=== PATIENT | female | born 1950 | race Caucasian/White ===

== ENCOUNTER → 2016-03-13 | Outpatient (CLI) | payer OTHER, MEDICARE ==
[~2016-03-13] MED LIST: ALBUAER INH; ALBUAER9 INH; AMLO-110 PO; AMLO2.5T PO; CALC500C70 PO; DFL100 PO; DIPH25CA65 PO; GEMF600T PO; HYDR-4852 PO; HYDR5SYP11 PO; IBUP-1050 PO; KFL500 PO; LACTCAP3 PEG; MELATAB2 PO; MONT1TAB3 PO; PRLSR20 PO; ROSU5TAB PO; SYMIN160 INH
--- NOTE | 2016-03-13 08:50 | DIAGNOSTIC IMAGING REPORT ---
MRI OF THE LUMBAR SPINE WITHOUT CONTRAST CLINICAL HISTORY: Left sciatica pain. COMPARISON STUDY: Lumbar spine radiograph February 15, 2016. TECHNIQUE: Utilizing a 1.5 Shilpa magnet and dedicated coil, multiplanar, multiecho imaging of the lumbar spine was performed without IV contrast. FINDINGS: For purposes of numbering on this exam, the L5-S1 disc space is assigned to axial image 2426. There is a suspected transitional vertebra at the lumbosacral junction which is designated as S1 on this examination. There is 3 mm retrolisthesis of L5 on S1. No intracanalicular mass or fluid collection is present. The conus terminates at the upper L2 level. A right renal cyst and diverticulum of the third portion of the duodenum are incidentally noted. L1-2: The central canal and neural foramen are patent. L2-3: The central canal and neural foramen are patent. L3-4: There is a left paracentral annular tear. There is minimal disc bulge. There is mild facet arthrosis. The central canal and neural foramen are patent. L4-5: There is mild facet arthrosis. There is mild disc bulge. The central canal and neural foramen are patent. L5-S1: There is grade I anterolisthesis with uncovering of the disc. There is moderate to severe facet arthrosis, greater on the left. There is mild disc bulge. The central canal is patent. There is mild narrowing of the bilateral neural foramen. IMPRESSION: 1. Mild multilevel degenerative disc disease. Mild disc bulge at L5-S1. No disc herniation. Patent central canal. 2. Severe facet arthritis at the L5-S1 level, greater on the left. 3. Mild bilateral neural foraminal stenosis at L5-S1 due to mild anterolisthesis, uncovering of the disc and facet arthrosis. 4. Transitional vertebra at the lumbosacral junction. Please see above numbering scheme of the lumbar spine. Electronically signed by: Bienvenido Ruiz M.D. 03/13/2016 8:49 AM
== END | disposition home or self-care (01) ==
LOC: C.MRI 08:00
PROVIDERS: ATTEND Family Medicine
DX: M54.32 Sciatica, left side (principal); M54.5 Low back pain

== ENCOUNTER → 2016-04-19 | Outpatient (CLI) | payer OTHER, MEDICARE ==
[~2016-04-19] MED LIST changes: -ALBUAER INH; -AMLO-110 PO
== END | disposition home or self-care (01) ==
LOC: C.RDSM 08:41
PROVIDERS: ATTEND Physical Medicine & Rehabilitation
DX: M54.5 Low back pain (principal)

== ENCOUNTER → 2016-05-04 | Day surgery (SDC) | payer OTHER, MEDICARE ==
[2016-04-25 07:38] VITALS: Ht 165.1 cm; Wt 71.8 kg
[~2016-05-04] VITALS: Ht 165.1 cm; Wt 71.8 kg
[~2016-05-04] MED LIST changes: +BUPIVACAINE 0.25% 2.5MG/ML PF 10 ML VIAL INFIL ONE; -DFL100 PO; -HYDR-4852 PO; -HYDR5SYP11 PO; +IOPAMIDOL INJ 61% 15 ML VIAL ONE; -KFL500 PO; -LACTCAP3 PEG; +LIDOCAINE HCL 1% MPF 5 ML VIAL ONE; +METHYLPREDNISOLONE ACETATE 80 MG/ML VIAL ONE; -MONT1TAB3 PO; -PRLSR20 PO; -SYMIN160 INH
--- NOTE | 2016-05-04 13:39 | History & Physical Bridge - [place] ---
H&P Re-Evaluation Bridge Note: I have examined the patient, reviewed the History & Physical and in the interval since the performance of the History & Physical I have noted the following changes of clinical significance: No changes noted
[2016-05-04 14:01] VITALS: TEMP 37.2
[2016-05-04 14:04] VITALS: BP 161/88; PULSE 87; O2SAT 95
--- NOTE | 2016-05-04 14:04 | Discharge Instructions ---
Discharge Instructions Visit Reason for Visit: Low Back Pain Discharge Discharge Diagnosis / Problem: low back pain Discharge Goals Goal(s): Decrease discomfort, Improve function Medications Stopped Medications Name(s): ADVIL- STOPPED Sunday04/30/16 Activity Recommendations Activity Limitations: resume your previous activity Anesthesia . Post Anesthesia Instructions: If you have had General Anesthesia or IV Sedation: * Do not drive today. * Resume driving when surgeon permits. * Do not make important decisions or sign legal documents today. * Call surgeon for: 1. Temperature elevations greater than 101 degrees F. 2. Uncontrollable pain. 3. Excessive bleeding. 4. Persistent nausea and vomiting. 5. Medication intolerance (nausea, vomiting or rash). * For nausea and vomiting use only clear liquids such as: tea, soda, bouillon until nausea subsides, then gradually increase diet as tolerated. * If you have any concerns or questions, call your surgeon's office. If physician is unavailable and it is an emergency, call 911 or go to the nearest emergency room. . Diet Recommendations Recommended Home Diet: resume previous diet Procedures Procedures Performed: LEFT FACET JOINT INJECTION Pending Studies Studies pending at discharge: no Medical Emergencies . Who to Call and When: Medical Emergencies: If at any time you feel your situation is an emergency, please call 911 immediately. . Non-Emergent Contact Non-Emergency issues call your: Specialist . . "Provider Documentation" section prepared by Kobi Regalado.
--- NOTE | 2016-05-04 14:37 | OPERATIVE REPORT ---
DATE OF OPERATION: 05/04/2016 PREOPERATIVE DIAGNOSIS: Left L5-S1 facet arthropathy. POSTOPERATIVE DIAGNOSIS: Same. PROCEDURE: Left L5-S1 facet joint injection. INDICATIONS: The patient is a 66-year-old white female who presents with a 4-month history of back pain. She is localizing it to the lower lumbar facet area. MRI reveals significant fluid signal in this region with very mild spondylolisthesis. It has not responded to conservative measures including chiropractic treatments and she presents today for an injection to provide her with relief into the facet region at L5-S1 on the left. PHYSICAL EXAMINATION: Pleasant female seated comfortably. She has point tenderness to palpation of the lower left L5-S1 facet, it is worse with extension, extension rotation. She has normal motor and sensory examination of her lower extremities. Negative seated straight leg raise. CONSENT: Verbal and written consent was obtained from the patient. Risks and benefits were reviewed. Risks include but are not limited to abscess and allergic reaction. The patient wishes to proceed. DESCRIPTION OF PROCEDURE: The patient was taken back to the special procedures room of the [facility] where she was maintained in a prone position. Backside was cleansed with Betadine x3 and a dry sterile dressing was applied. Fluoroscope was used to identify the L5-S1 facet, which was very prominent with irregularities and sclerosis around the joint in an oblique view. She then underwent anesthetization with 5 mL of lidocaine 1% with a 25 gauge 1.5-inch needle and a 25 gauge 3.5 inch spinal needle was directed under an oblique fashion into the joint space. Isovue 300 contrast was injected less than 0.25 mL which showed intra-articular placement. She then underwent injection after negative aspiration of 40 mg of Depo-Medrol and 0.5 mL of bupivacaine 0.25%. Injection was well tolerated. DISPOSITION: 1. The patient is taken out into the discharge recovery area where she will be discharged home once discharge criteria have been met. 2. Follow up in the [facility] office in 2-4 weeks. I attest to the content of the Intraoperative Record and any orders documented therein. Any exceptio ns are noted below.
== END | disposition home or self-care (01) ==
LOC: X.SURG 12:53
PROVIDERS: ATTEND Physical Medicine & Rehabilitation
DX: M47.817 Spondylosis without myelopathy or radiculopathy, lumbosacral region (principal); M54.17 Radiculopathy, lumbosacral region; I10 Essential (primary) hypertension; J45.909 Unspecified asthma, uncomplicated; Z88.0 Allergy status to penicillin

== ENCOUNTER 2017-02-03 17:36 | Emergency (ER) | payer OTHER, MEDICARE ==
[~2017-02-03] VITALS: Ht 167.6 cm; Wt 70.6 kg
[~2017-02-03 17:36] MED LIST changes: -BUPIVACAINE 0.25% 2.5MG/ML PF 10 ML VIAL INFIL ONE; -IOPAMIDOL INJ 61% 15 ML VIAL ONE; -LIDOCAINE HCL 1% MPF 5 ML VIAL ONE; -METHYLPREDNISOLONE ACETATE 80 MG/ML VIAL ONE
[2017-02-03 17:38] VITALS: Ht 167.6 cm; Wt 70.6 kg
[2017-02-03] MEDS ORDERED: ONDANSETRON INJ 2 MG/ML 2 ML VIAL IV STA (17:51)
[2017-02-03] MEDS ORDERED: SODIUM CHLORIDE 0.9% 1000ML 1,000 ML IV STA (17:51)
[2017-02-03 18:34] VITALS: O2SAT 99
--- NOTE | 2017-02-03 18:41 | DIAGNOSTIC IMAGING REPORT ---
CHEST ONE VIEW PORTABLE CLINICAL HISTORY: Abdominal pain. COMPARISON STUDY: Chest radiograph July 03, 2014. FINDINGS: Lung volumes are normal. There is no consolidation or evidence of pulmonary edema. Cardiomediastinal silhouette is normal. There is no pneumothorax or pleural effusion. IMPRESSION: No acute cardiopulmonary findings. Electronically signed by: Bienvenido Ruiz M.D. 02/03/2017 6:40 PM Dictated Date/Time: 02/03/2017 6:39 PM
--- NOTE | 2017-02-03 18:59 | Endo History and Physical ---
History & Physical Date of Service: Feb 03, 2017. Chief Complaint: Food impaction Referring Physician: Dr. Sher History of Present Illness 66-year-old female presented to the emergency department with a food impaction. The patient notes she is been in her usual state of health until this afternoon when she had a pork sandwich at dinner. During the first bite or 2 she developed an acute bolus impaction that was associated with chest pain. Since admission to the emergency room she's been unable to swallow liquids, solids, or her own saliva. She denies any shortness of breath or coughing. The patient did have a prior similar episode over 5 years ago during which time she had an upper endoscopy with Dr. Wells. She denies having reflux symptoms on a regular basis or new changes in medications. Past Medical History Asthma, Anxiety, Reflux, High Cholesterol, Hypertension, Other Past Surgical History Hx Cardiac Surgery: No Hx Internal Defibrillator: No Hx Pacemaker: No Hx Abdominal Surgery: No Hx Post-Op Nausea and Vomiting: No Hx Cancer Surgery: No Hx Thoracic Surgery: No Hx Orthopedic: Yes (RT WRIST SURGERY) Hx Urinary Tract Surgery: No Family History None Social History Smoking Status: Never Smoker Hx Substance Use: No Hx Alcohol Use: No Allergies Coded Allergies: Hyoscyamine (Unverified Allergy, Intermediate, ANXIETY, 05/04/16) Doxycycline (Unverified Allergy, Mild, RASH, 05/04/16) Penicillins (Unverified Allergy, Mild, RASH, 05/04/16) Erythromycin (Unverified Allergy, Unknown, RASH, 05/04/16) Simvastatin (Unverified Allergy, Unknown, MUSCLE ACHES, 05/04/16) Tetracycline (Verified Allergy, Unknown, RASH, 05/04/16) Codeine (Unverified Adverse Reaction, Mild, GI UPSET AND NAUSEA, 05/04/16) Current Medications Reported Home Medications Medications Dose Route/Sig Max Daily Dose Days Date Category Benadryl Allergy (Diphenhydramine Hcl) 25 Mg Cap 1 Cap PO HS 30 05/04/16 Reported Advil (Ibuprofen) 200 Mg Tab 400-600 Mg PO Q6H PRN 04/25/16 Reported Crestor (Rosuvastatin Calcium) 5 Mg Tab 5 Mg PO HS 04/25/16 Reported Melatonin Maximum Strengt (Melatonin) 5 Mg Tab 10 Mg PO HS PRN 04/25/16 Reported Lopid (Gemfibrozil) 600 Mg Tab 600 Mg PO BID 04/25/16 Reported Norvasc (Amlodipine Besylate) 2.5 Mg Tab 1 Tab PO BID 04/25/16 Reported Proventil Hfa (Albuterol Sulfate) Aer 2 Puffs INH BID PRN 08/18/14 Reported Os-Bryant 500 Plus D (Calcium/Vitamin D) Tab 1 Tab PO QPM 07/03/14 Reported Vital Signs Weight (Kilograms): 70.600 Height (Feet): 5 Height (Inches): 6.00 Date Time Temp Pulse Resp B/P (MAP) Pulse Ox O2 Delivery O2 Flow Rate FiO2 02/03/17 18:34 86 18 172/69 99 Room Air 02/03/17 18:33 68 02/03/17 17:45 98 Room Air 02/03/17 17:38 36.4 79 18 164/85 98 Room Air Review of Systems Respiratory: No sputum, No shortness of breath, No hemoptysis Cardiovascular: No orthopnea, No edema, No palpitations Abdomen: No diarrhea, No GI bleeding Neuro: No headache, no double vision ENT: Pill dysphagia noted by patient Musculoskeletal: No new joint pains no new muscle pains Endocrine: No polyuria or polydipsia Studies through Psychiatric: No depression or suicidal ideation Urinary: No dysuria noted by patient Physical Exam General Appearance: no apparent distress Respiratory/Chest: Auscultation: breath sounds normal Cardiovascular: Heart Auscultation: RRR Abdomen: Inspection & Palpation: soft, non-distended Assessment and Plan Patient presenting for food bolus impaction. As she is unable to tolerate her own saliva we will proceed with a more urgent endoscopy this evening. We discussed the risks to include bleeding, infection, perforation and cardiopulmonary problems and aspiration. Recommendations EGD tonight Repeat upper endoscopy with Dr. Wells in 2 weeks Omeprazole 20 mg per day Clear liquid diet tonight, full liquid diet Sunday, July advance diet as tolerated on Sunday
[2017-02-03] MEDS ORDERED: MIDAZOLAM HCL 1 MG/ML 2ML VIAL ONE (19:16)
[2017-02-03] MEDS ORDERED: PROPOFOL IV EMULSION 10 MG/ML 20 ML VIAL IV ONE (19:17)
[2017-02-03] MEDS ORDERED: FENTANYL CITRATE INJ 50 MCG/1 ML 2 ML VIAL ONE (19:17)
[2017-02-03] MEDS ORDERED: SUCCINYLCHOLINE 100MG/5ML SYR IV ONE (19:17)
[2017-02-03] MEDS ORDERED: LIDOCAINE HCL 2% 2 ML VIAL (20MG/ML) ONE (19:17)
--- NOTE | 2017-02-03 19:46 | GI REPORT ---
Procedure Date: 02/03/2017 7:08 PM Procedure: Upper GI endoscopy Indications: Foreign body in the esophagus Medicines: General Anesthesia Complications: No immediate complications. Estimated blood loss: Minimal. Estimated Blood Loss: Estimated blood loss was minimal. Procedure: Pre-Anesthesia Assessment: - Prior to the procedure, a History and Physical was performed, and patient medications, allergies and sensitivities were reviewed. The patient's tolerance of previous anesthesia was reviewed. - The risks and benefits of the procedure and the sedation options and risks were discussed with the patient. All questions were answered and informed consent was obtained. - Patient identification and proposed procedure were verified prior to the procedure by the physician, the nurse and the precipitate washer. The procedure was verified in the procedure room. - Pre-procedure physical examination revealed no contraindications to sedation. - ASA Grade Assessment: III - A patient with severe systemic disease. - After reviewing the risks and benefits, the patient was deemed in satisfactory condition to undergo the procedure. - The anesthesia plan was to use general anesthesia. - Immediately prior to administration of medications, the patient was re-assessed for adequacy to receive sedatives. - The heart rate, respiratory rate, oxygen saturations, blood pressure, adequacy of pulmonary ventilation, and response to care were monitored throughout the procedure. - The physical status of the patient was re-assessed after the procedure. After obtaining informed consent, the endoscope was passed under direct vision. Throughout the procedure, the patient's blood pressure, pulse, and oxygen saturations were monitored continuously. The scope was introduced through the mouth, and advanced to the second part of duodenum. The upper GI endoscopy was accomplished without difficulty. The patient tolerated the procedure well. Findings: LA Grade B (one or more mucosal breaks greater than 5 mm, not extending between the tops of two mucosal folds) esophagitis with no bleeding was found in the lower third of the esophagus (represents inflammatory changes from the bolus impaction). The bolus appeared to have passe spontaneously. A small amount of food (residue) was found in the gastric body. The examined duodenum was normal. The gastric fundus, incisura and gastric antrum were normal. Impression: - LA Grade B esophagitis. - A small amount of food (residue) in the stomach. - Normal examined duodenum. - No specimens collected. Recommendation: - Discharge patient to home (ambulatory). - Clear liquid diet today. - Use Prilosec (omeprazole) 20 mg PO daily. - EGD with Dr. Wells for dilation in 2-4 weeks. Marc Ferguson D.O. Marc Ferguson, DO 02/03/2017 7:46:01 PM This report has been signed electronically. Note Initiated On: 02/03/2017 7:08 PM I attest to the content of the Intraoperative Record and orders documented therein, exceptions below
--- NOTE | 2017-02-03 19:59 | [facility] Post Operative Brief Note ---
Immediate Operative Summary Operative Date Feb 03, 2017. Pre-Operative Diagnosis Esophageal Food Bolus Post-Operative Diagnosis Esophageal Food Bolus/Esophagitis Procedure(s) Performed Upper Esophagogastroduodenoscopy Surgeon Dr Ferguson [employer] Surgeon(s) None Estimated Blood Loss 0cc Findings Esophagitis Specimens None as per Surgeon Anesthesia General Complication(s) None Disposition Recovery Room / PACU
[2017-02-03] MEDS ORDERED: ONDANSETRON INJ 2 MG/ML 2 ML VIAL IV PRN (20:00)
--- NOTE | 2017-02-03 20:02 | Discharge Instructions ---
Endoscopy Patient Instructions Date / Procedure(s) Performed Feb 03, 2017. EGD Allergy Information Coded Allergies: Hyoscyamine (Unverified Allergy, Intermediate, ANXIETY, 05/04/16) Doxycycline (Unverified Allergy, Mild, RASH, 05/04/16) Penicillins (Unverified Allergy, Mild, RASH, 05/04/16) Erythromycin (Unverified Allergy, Unknown, RASH, 05/04/16) Simvastatin (Unverified Allergy, Unknown, MUSCLE ACHES, 05/04/16) Tetracycline (Verified Allergy, Unknown, RASH, 05/04/16) Codeine (Unverified Adverse Reaction, Mild, GI UPSET AND NAUSEA, 05/04/16) Discharge Date / Findings Feb 03, 2017. Esophagitis Medication Instructions Restart Stopped Medication(s): Reported Home Medications Medications Dose Route/Sig Max Daily Dose Days Date Category Active Prescriptions or Reported Medications Unobtainable Rx Start Omeprazole 20 mg per day Home medication List: Benadryl as needed Crestor 5 mg daily Melatonin OTC Lopid 600 mg twice daily Norvasc 5 mg twice daily Proventil 2 puffs as needed Provider Instructions Activity Restrictions - No exercising or heavy lifting for 24 hours. - Do not drink alcohol the day of the procedure. - Do not drive a car or operate machinery until the day after the procedure. - Do not make any important decisions or sign important papers in 24 hours after the procedure. Following Day: - Return to full activity which may include returning to work/school. Diet Clear liquid diet today Full liquid diet on Sunday Advance to regular diet on Sunday (avoid meats, bread and leafy vegatble) Treatment For Common After Affects For mild abdominal pain, bloating, or excessive gas: - Rest - Eat lightly - Lie on right side Follow-Up Information Follow-up with Dr. Wells for a repeat upper endoscopy in 2 to 4 weeks (please call his office) Omeprazole 20 mg per day (Over The Counter if fine) Anesthesia Information What You Should Know You have had a procedure that required some medicine to reduce anxiety and discomfort. This treatment is called moderate sedation. After receiving the treatment, you may be sleepy, but you will be able to breathe on your own. The effects of the treatment may last for several hours. Follow these instructions along with Activity/Diet recommendations noted above: * Do NOT do anything where dizziness or clumsiness would be dangerous. * Rest quietly at home today, then you can be up and about tomorrow. * Have a responsible person stay with you the rest of today. * You may have had an I.V. today. If so, you may take the dressing off later today. Recommendations Call your doctor if: * Trouble breathing * Continuous vomiting for more than 24 hours * Temperature above 101 degrees * Severe abdominal pain or bloating * Pain not relieved by pain medicine ordered * There is increased drainage or redness from any incision * A large amount of rectal bleeding greater than 2-3 tablespoons. (If you had a polyp/s removed or have hemorrhoids, a small amount of blood - from the rectum is to be expected.) * You have any unanswered questions or concerns. IN THE EVENT OF A SERIOUS EMERGENCY, GO TO THE NEAREST EMERGENCY ROOM Your discharge instructions were prepared by provider Marc Ferguson. Patient Instructions Signature Page Margie Mosqueda Patient (or Guardian) Signature/Date: I have read and understand the instructions given to me by my caregivers. Caregiver/RN/Doctor Signature/Date: The above-named patient and/or guardian has received patient instructions on this date. + Original Patient Signature Page (only) stays with chart. Please make copy for patient.
--- NOTE | 2017-02-03 20:13 | Anesthesiology Progress Note ---
Anesthesia Post Op Note Date & Time Feb 03, 2017 at 20:13 Vital Signs Pain Intensity: 0 Vital Signs Past 12 Hours Date Time Temp Pulse Resp B/P (MAP) Pulse Ox O2 Delivery O2 Flow Rate FiO2 02/03/17 20:00 86 17 154/68 97 Nasal Cannula 2 02/03/17 19:52 36.2 90 16 149/64 97 Nasal Cannula 2 02/03/17 18:34 86 18 172/69 99 Room Air 02/03/17 18:33 68 02/03/17 17:45 98 Room Air 02/03/17 17:38 36.4 79 18 164/85 98 Room Air Notes Mental Status: alert / awake / arousable, participated in evaluation Pt Amnestic to Procedure: Yes Nausea / Vomiting: adequately controlled Pain: adequately controlled Airway Patency, RR, SpO2: stable & adequate BP & HR: stable & adequate Hydration State: stable & adequate Anesthetic Complications: no major complications apparent
[2017-02-03] MEDS ORDERED: EpHEDrine SULFATE INJ 50 MG/ML AMP IV PRN (20:15)
[2017-02-03] MEDS ORDERED: ATROPINE SULFATE 0.1 MG/ML 5ML SYR IV PRN (20:15)
[2017-02-03 20:33] VITALS: BP 136/62; PULSE 80; TEMP 36.2; O2SAT 99
[2017-02-03 20:55] VITALS: BP 154/65; PULSE 79; TEMP 36.2; O2SAT 97
[2017-02-03 21:00] VITALS: BP 147/79; PULSE 79; TEMP 36.3; O2SAT 95
--- NOTE | 2017-02-03 22:04 | EMERGENCY ROOM VISIT NOTE ---
History Report prepared by Yariel: Alisson Ricks Under the Supervision of: Dr. Sarbjit Rider M.D. First contact with patient: 17:42 Chief Complaint: FOOD BOLUS Stated Complaint: PRESSURE IN CHEST, CANT SWOLLOW, THROWING UP History of Present Illness The patient is a 66 year old female who presents to the Emergency Room with complaints of an episode of food bolus occurring prior to arrival. The patient states that she felt fine all day today and came home for dinner. She reports that she took one bite of pulled pork and felt like it got stuck. The patient reports that this has never happened before. She states that she has had it happen before with gel tabs, but never this bad. She notes that she cannot keep her own saliva down. The patient states that she had an endoscopy done [address] Wells. Pt denies LOC, headache, fevers, chills, diaphoresis, visual changes, neck pain , chest pain, breathing difficulties, nausea, abdominal pain, back pain, melena , hematochezia, urinary symptoms, numbness, weakness, lymphadenopathy, rash, or other complaints. Source of History: patient Onset: prior to arrival Position: other (global) Quality: other (global) Timing: other (episode) Associated Symptoms: + vomiting Note: The patient complains of not being able to keep her saliva down. Review of Systems See HPI for pertinent positives and negatives. A total of ten systems were reviewed and were otherwise negative. Past Medical & Surgical Medical Problems: (1) Asthma (2) Diverticulitis (3) High cholesterol (4) Hypertension Family History FHx: abdominal aortic aneurysm Social History Smoking Status: Never Smoker Alcohol Use: none Marital Status: Housing Status: lives with significant other Occupation Status: employed Current/Historical Medications Unable to Obtain Active Prescriptions or Reported Meds Allergies Coded Allergies: Hyoscyamine (Unverified Allergy, Intermediate, ANXIETY, 05/04/16) Doxycycline (Unverified Allergy, Mild, RASH, 05/04/16) Penicillins (Unverified Allergy, Mild, RASH, 05/04/16) Erythromycin (Unverified Allergy, Unknown, RASH, 05/04/16) Simvastatin (Unverified Allergy, Unknown, MUSCLE ACHES, 05/04/16) Tetracycline (Verified Allergy, Unknown, RASH, 05/04/16) Codeine (Unverified Adverse Reaction, Mild, GI UPSET AND NAUSEA, 05/04/16) Physical Exam Vital Signs Date Time Temp Pulse Resp B/P (MAP) Pulse Ox O2 Delivery O2 Flow Rate FiO2 02/03/17 21:00 36.3 79 16 147/79 (101) 95 Room Air 02/03/17 20:55 36.2 79 16 154/65 97 Room Air 02/03/17 20:45 80 16 154/65 (94) 97 Room Air 02/03/17 20:33 36.2 80 16 136/62 (86) 97 Room Air 02/03/17 20:33 36.2 80 16 136/62 99 Room Air 02/03/17 20:30 36.2 82 18 136/62 97 Room Air 02/03/17 20:20 83 15 157/62 97 Room Air 02/03/17 20:10 86 15 133/73 95 Room Air 02/03/17 20:00 86 17 154/68 97 Nasal Cannula 2 02/03/17 19:52 36.2 90 16 149/64 97 Nasal Cannula 2 02/03/17 18:34 86 18 172/69 99 Room Air 02/03/17 18:33 68 02/03/17 17:45 98 Room Air 02/03/17 17:38 36.4 79 18 164/85 98 Room Air Physical Exam GENERAL: Awake, alert, uncomfortable-appearing, in no distress, gagging on own saliva. HENT: Normocephalic, atraumatic. Oropharynx unremarkable. EYES: Normal conjunctiva. Sclera non-icteric. NECK: Supple. No nuchal rigidity. FROM. No JVD. RESPIRATORY: Clear to auscultation. CARDIAC: Regular rate, normal rhythm. Extremities warm and well perfused. Pulses equal. ABDOMEN: Soft, non-distended. No tenderness to palpation. No rebound or guarding. No masses. RECTAL: Deferred. MUSCULOSKELETAL: Chest examination reveals no tenderness. The back is symmetrical on inspection without obvious abnormality. There is no CVA tenderness to palpation. No joint edema. LOWER EXTREMITIES: Calves are equal size bilaterally and non-tender. No edema. No discoloration. NEURO: Normal sensorium. No sensory or motor deficits noted. SKIN: No rash or jaundice noted. Medical Decision & Procedures ER Provider Diagnostic Interpretation: Radiology results as stated below per my review and radiologist interpretation: CHEST ONE VIEW PORTABLE CLINICAL HISTORY: Abdominal pain. COMPARISON STUDY: Chest radiograph July 03, 2014. FINDINGS: Lung volumes are normal. There is no consolidation or evidence of pulmonary edema. Cardiomediastinal silhouette is normal. There is no pneumothorax or pleural effusion. IMPRESSION: No acute cardiopulmonary findings. Electronically signed by: Bienvenido Ruiz M.D. 02/03/2017 6:40 PM Dictated Date/Time: 02/03/2017 6:39 PM Medications Administered Medications (Trade) Dose Ordered Sig/Amanda Route Start Time Stop Time Status Last Admin Dose Admin Sodium Chloride 1,000 ml @ 125 mls/hr Q8H STAT IV 02/03/17 17:51 02/03/17 21:04 DC 02/03/17 18:32 125 MLS/HR Ondansetron HCl (Zofran Inj) 4 mg NOW STAT IV 02/03/17 17:51 02/03/17 17:53 DC 02/03/17 18:32 4 MG ECG Indication: abdominal pain Rate (beats per minute): 69 Rhythm: sinus with SA Findings: no acute ischemic change, no ectopy ED Course 1750: The patient was evaluated in room B3B. A complete history and physical exam was performed. 175: Ordered Zofran Inj 4 mg IV, NSS 1000 ml @ 125 mls/hr IV. 1802: I discussed the patient's case with Dr. Ferguson. He is making arrangements for the patient's endoscopy. 1818: I reevaluated the patient and updated her on GI coming in to see her. 1855: Dr. Ferguson is currently taking the patient for her endoscopy. Medical Decision Triage Nursing notes reviewed. The patient's presentation and history were concerning for possible food impaction and chest discomfort. Etiologies such as esophageal food impaction, esophageal stricture, esophagitis , esophageal rupture, cardiac ischemia, musculoskeletal, infections, gastrointestinal, as well as others were entertained. The patient was doing relatively well under the circumstances. Chest x-ray was unremarkable. ECG revealed no ischemia. The patient was given Zofran and hydrated. She was kept NPO. Consultation with gastroenterology. The patient was evaluated in the Emergency Room by Dr. Ferguson. He was felt that endoscopy urgently was necessary due to high suspicion for esophageal food impaction. The patient was taken to the endoscopy suite for further management. Please see the notes from GI for details. Medication Reconcilliation Current Medication List: was personally reviewed by me Blood Pressure Screening Patient's blood pressure: Elevated blood pressure Blood pressure disposition: Elevated BP felt to be situational Consults Time Called: 1800 Consulting Physician: Dr. Ferguson Returned Call: 1803 I discussed the patient's case with Dr. Ferguson. He is making arrangements for the patient's endoscopy. Impression Primary Impression: Food impaction of esophagus Scribe Attestation The scribe's documentation has been prepared under my direction and personally reviewed by me in its entirety. I confirm that the note above accurately reflects all work, treatment, procedures, and medical decision making performed by me. Departure Information Dispostion Being Evaluated By Surgeon Prescriptions Unable to Obtain Active Prescriptions or Reported Meds Referrals Victoria Ramirez PA-C (PCP) Patient Instructions My [facility]
[2017-02-09] MEDS ORDERED: DIPH25CA65 PO (09:18)
[2017-02-09] MEDS ORDERED: ALBUAER INH (09:18)
[2017-02-09] MEDS ORDERED: AMLO-110 PO (09:18)
[2017-02-09] MEDS ORDERED: PRLSR20 PO (09:18)
[2017-02-09] MEDS ORDERED: ROSU5TAB PO (09:18)
== END 2017-02-03 18:52 | disposition still patient (30) ==
LOC: C.EDB 17:37
DX: T18.108A Unspecified foreign body in esophagus causing other injury, initial encounter (principal); X58.XXXA Exposure to other specified factors, initial encounter; K20.9 Esophagitis, unspecified; J45.909 Unspecified asthma, uncomplicated; F41.9 Anxiety disorder, unspecified; K21.9 Gastro-esophageal reflux disease without esophagitis; E78.00 Pure hypercholesterolemia, unspecified; I10 Essential (primary) hypertension; Z98.890 Other specified postprocedural states; Z88.0 Allergy status to penicillin; Z88.1 Allergy status to other antibiotic agents; Z88.5 Allergy status to narcotic agent

== ENCOUNTER → 2017-02-20 | Day surgery (SDC) | payer OTHER, MEDICARE ==
[2017-02-09 09:21] VITALS: Ht 165.1 cm; Wt 71.8 kg
[~2017-02-20] VITALS: Ht 165.1 cm; Wt 71.8 kg
[~2017-02-20] MED LIST changes: +ALBUAER INH; -ALBUAER9 INH; +AMLO-110 PO; -AMLO2.5T PO; -CALC500C70 PO; -GEMF600T PO; -IBUP-1050 PO; +LIDOCAINE HCL 2% 2 ML VIAL (20MG/ML) ONE; -MELATAB2 PO; +PRLSR20 PO; +PROPOFOL IV EMULSION 10 MG/ML 20 ML VIAL IV ONE; +SODIUM CHLORIDE 0.9% 500ML 500 ML IV ONE
--- NOTE | 2017-02-20 08:48 | Endo History and Physical ---
History & Physical Date of Service: Feb 20, 2017. Chief Complaint: Dysphagia Referring Physician: Dr Hernandez History of Present Illness 67 yo CF who presents for EGD secondary to dysphagia. Past Medical History Asthma, Anxiety, Reflux, High Cholesterol, Hypertension, Other Past Surgical History Hx Cardiac Surgery: No Hx Internal Defibrillator: No Hx Pacemaker: No Hx Abdominal Surgery: No Hx Post-Op Nausea and Vomiting: No Hx Cancer Surgery: No Hx Thoracic Surgery: No Hx Orthopedic: Yes (RT WRIST SURGERY) Hx Urinary Tract Surgery: No Family History None Social History Smoking Status: Never Smoker Hx Substance Use: No Hx Alcohol Use: No Allergies Coded Allergies: Hyoscyamine (Unverified Allergy, Intermediate, ANXIETY, 02/09/17) Doxycycline (Unverified Allergy, Mild, RASH, 02/09/17) Penicillins (Unverified Allergy, Mild, RASH, 02/09/17) Erythromycin (Unverified Allergy, Unknown, RASH, 02/09/17) Simvastatin (Unverified Allergy, Unknown, MUSCLE ACHES, 02/09/17) Tetracycline (Verified Allergy, Unknown, RASH, 02/09/17) Codeine (Unverified Adverse Reaction, Mild, GI UPSET AND NAUSEA, 02/09/17) Current Medications Reported Home Medications Medications Dose Route/Sig Max Daily Dose Days Date Category Prilosec (Omeprazole) 20 Mg Capcr 20 Mg PO QAM 02/09/17 Reported Proventil Hfa (Albuterol Sulfate) 108 Mcg/Act Aer 2 Puff INH Q4H PRN 02/09/17 Reported Norvasc (Amlodipine Besylate) 5 Mg Tab 5 Mg PO BID 02/09/17 Reported Crestor (Rosuvastatin Calcium) 5 Mg Tab 5 Mg PO HS 02/09/17 Reported Benadryl Allergy (Diphenhydramine Hcl) 25 Mg Cap 1 Cap PO HS PRN 02/09/17 Reported Vital Signs Weight (Kilograms): 71.82 Height (Feet): 5 Height (Inches): 5 Date Time Temp Pulse Resp B/P (MAP) Pulse Ox O2 Delivery O2 Flow Rate FiO2 02/20/17 08:21 36.5 78 18 162/71 (101) 96 Room Air Physical Exam General Appearance: WD/WN, no apparent distress Respiratory/Chest: Auscultation: breath sounds normal Cardiovascular: Heart Auscultation: RRR Abdomen: Bowel Sounds: normal Inspection & Palpation: soft, non-distended, no tenderness, guarding & rebound Assessment and Plan Assessment: 67 yo CF who presents for EGD secondary to dysphagia. Plan: Proceed with EGD.
--- NOTE | 2017-02-20 10:31 | GI REPORT ---
Procedure Date: 02/20/2017 9:43 AM Procedure: Upper GI endoscopy Indications: Dysphagia Medicines: Monitored Anesthesia Care Complications: No immediate complications. Estimated Blood Loss: Estimated blood loss: none. Procedure: Pre-Anesthesia Assessment: - Prior to the procedure, a History and Physical was performed, and patient medications and allergies were reviewed. The patient's tolerance of previous anesthesia was also reviewed. The risks and benefits of the procedure and the sedation options and risks were discussed with the patient. All questions were answered, and informed consent was obtained. Prior Anticoagulants: The patient has taken no previous anticoagulant or antiplatelet agents. ASA Grade Assessment: II - A patient with mild systemic disease. After reviewing the risks and benefits, the patient was deemed in satisfactory condition to undergo the procedure. After obtaining informed consent, the endoscope was passed under direct vision. Throughout the procedure, the patient's blood pressure, pulse, and oxygen saturations were monitored continuously. The scope was introduced through the mouth, and advanced to the second part of duodenum. The upper GI endoscopy was accomplished without difficulty. The patient tolerated the procedure well. Findings: A moderate Schatzki ring (acquired) was found at the gastroesophageal junction. A TTS dilator was passed through the scope. Dilation with an 18-19-20 mm balloon (to a maximum balloon size of 18 mm) dilator was performed. The dilation site was examined and showed moderate improvement in luminal narrowing. A small hiatus hernia was present. The examined duodenum was normal. Impression: - Moderate Schatzki ring. Dilated. - Small hiatus hernia. - Normal examined duodenum. - No specimens collected. Recommendation: - Resume previous diet. - Continue present medications. - Continue present medications. - Return to primary care physician as previously scheduled. Nestor Wells, DO 02/20/2017 10:30:33 AM This report has been signed electronically. Note Initiated On: 02/20/2017 9:43 AM I attest to the content of the Intraoperative Record and orders documented therein, exceptions below
--- NOTE | 2017-02-20 10:41 | Anesthesiology Progress Note ---
Anesthesia Post Op Note Date & Time Feb 20, 2017 at 10:41 Vital Signs Vital Signs Past 12 Hours Date Time Temp Pulse Resp B/P (MAP) Pulse Ox O2 Delivery O2 Flow Rate FiO2 02/20/17 10:35 75 18 136/69 (91) 99 Room Air 02/20/17 10:20 66 16 138/66 (90) 99 Room Air 02/20/17 08:21 36.5 78 18 162/71 (101) 96 Room Air Notes Mental Status: alert / awake / arousable, participated in evaluation Pt Amnestic to Procedure: Yes Nausea / Vomiting: adequately controlled Pain: adequately controlled Airway Patency, RR, SpO2: stable & adequate BP & HR: stable & adequate Hydration State: stable & adequate Anesthetic Complications: no major complications apparent
[2017-02-20 10:52] VITALS: BP 159/80; PULSE 73; O2SAT 99
--- NOTE | 2017-02-20 10:57 | Discharge Instructions ---
Endoscopy Patient Instructions Date / Procedure(s) Performed Feb 20, 2017. EGD Allergy Information Coded Allergies: Hyoscyamine (Unverified Allergy, Intermediate, ANXIETY, 02/09/17) Doxycycline (Unverified Allergy, Mild, RASH, 02/09/17) Penicillins (Unverified Allergy, Mild, RASH, 02/09/17) Erythromycin (Unverified Allergy, Unknown, RASH, 02/09/17) Simvastatin (Unverified Allergy, Unknown, MUSCLE ACHES, 02/09/17) Tetracycline (Verified Allergy, Unknown, RASH, 02/09/17) Codeine (Unverified Adverse Reaction, Mild, GI UPSET AND NAUSEA, 02/09/17) Discharge Date / Findings Feb 20, 2017. Schatzki's Ring s/p dilation to 18mm Hiatal hernia Medication Instructions OK to resume all medications today as prescribed Reported Home Medications Medications Dose Route/Sig Max Daily Dose Days Date Category Prilosec (Omeprazole) 20 Mg Capcr 20 Mg PO QAM 02/09/17 Reported Proventil Hfa (Albuterol Sulfate) 108 Mcg/Act Aer 2 Puff INH Q4H PRN 02/09/17 Reported Norvasc (Amlodipine Besylate) 5 Mg Tab 5 Mg PO BID 02/09/17 Reported Crestor (Rosuvastatin Calcium) 5 Mg Tab 5 Mg PO HS 02/09/17 Reported Benadryl Allergy (Diphenhydramine Hcl) 25 Mg Cap 1 Cap PO HS PRN 02/09/17 Reported Provider Instructions Activity Restrictions - No exercising or heavy lifting for 24 hours. - Do not drink alcohol the day of the procedure. - Do not drive a car or operate machinery until the day after the procedure. - Do not make any important decisions or sign important papers in 24 hours after the procedure. Following Day: - Return to full activity which may include returning to work/school. Diet Start your diet with liquids and light foods (jello, soup, juice, toast). Then eat your usual diet if not nauseated. Treatment For Common After Affects For mild abdominal pain, bloating, or excessive gas: - Rest - Eat lightly - Lie on right side Follow-Up Information Follow-up with Dr Hernandez as scheduled Anesthesia Information What You Should Know You have had a procedure that required some medicine to reduce anxiety and discomfort. This treatment is called moderate sedation. After receiving the treatment, you may be sleepy, but you will be able to breathe on your own. The effects of the treatment may last for several hours. Follow these instructions along with Activity/Diet recommendations noted above: * Do NOT do anything where dizziness or clumsiness would be dangerous. * Rest quietly at home today, then you can be up and about tomorrow. * Have a responsible person stay with you the rest of today. * You may have had an I.V. today. If so, you may take the dressing off later today. Recommendations Call your doctor if: * Trouble breathing * Continuous vomiting for more than 24 hours * Temperature above 101 degrees * Severe abdominal pain or bloating * Pain not relieved by pain medicine ordered * There is increased drainage or redness from any incision * A large amount of rectal bleeding greater than 2-3 tablespoons. (If you had a polyp/s removed or have hemorrhoids, a small amount of blood - from the rectum is to be expected.) * You have any unanswered questions or concerns. IN THE EVENT OF A SERIOUS EMERGENCY, GO TO THE NEAREST EMERGENCY ROOM Your discharge instructions were prepared by provider Nestor Wells. Patient Instructions Signature Page Margie Mosqueda Patient (or Guardian) Signature/Date: I have read and understand the instructions given to me by my caregivers. Caregiver/RN/Doctor Signature/Date: The above-named patient and/or guardian has received patient instructions on this date. + Original Patient Signature Page (only) stays with chart. Please make copy for patient.
== END | disposition home or self-care (01) ==
LOC: C.GI 07:52
PROVIDERS: ATTEND Internal Medicine
DX: K22.2 Esophageal obstruction (principal); K44.9 Diaphragmatic hernia without obstruction or gangrene; I10 Essential (primary) hypertension; E78.00 Pure hypercholesterolemia, unspecified; J45.909 Unspecified asthma, uncomplicated; K21.9 Gastro-esophageal reflux disease without esophagitis; F41.9 Anxiety disorder, unspecified; Z79.899 Other long term (current) drug therapy

== ENCOUNTER → 2017-03-06 | Outpatient (CLI) | payer OTHER, MEDICARE ==
[~2017-03-06] MED LIST changes: -AMLO-110 PO; +AMLO5TAB3 PO; -LIDOCAINE HCL 2% 2 ML VIAL (20MG/ML) ONE; +NRN/100 PO; -PROPOFOL IV EMULSION 10 MG/ML 20 ML VIAL IV ONE; -SODIUM CHLORIDE 0.9% 500ML 500 ML IV ONE
--- NOTE | 2017-03-06 10:37 | DIAGNOSTIC IMAGING REPORT ---
BILATERAL CAROTID DOPPLER STUDY HISTORY: Bilateral carotid bruits. COMPARISON: None. TECHNIQUE: Real-time, grayscale, and color Doppler sonography of the carotid arteries was performed. Imaging reviewed in the transverse and longitudinal planes. All measurements were calculated based on NASCET criteria. FINDINGS: Antegrade flow is seen in the bilateral vertebral arteries. The brachial pressures are hemodynamically similar. No significant plaque formation. The peak systolic velocity within the right ICA is 93 cm/s. The right systolic ratio is 1.2. The peak systolic velocity within the left ICA is 109 cm/s. The left systolic ratio is 1.4. Slightly elevated systolic velocities within the bilateral external carotid arteries measuring 141 cm/s on the right and 145 cm/s on the left. However, there is no significant stenosis on the provided images. IMPRESSION: No hemodynamically significant stenosis seen within the carotid arteries. Electronically signed by: Neville Butler M.D. 03/06/2017 10:36 AM Dictated Date/Time: 03/06/2017 10:34 AM
== END | disposition home or self-care (01) ==
LOC: C.ULTR 09:27
PROVIDERS: ATTEND Physician Assistant
DX: R09.89 Other specified symptoms and signs involving the circulatory and respiratory systems (principal)

== ENCOUNTER 2017-05-18 10:52 | Emergency (ER) | payer OTHER, MEDICARE ==
[~2017-05-18] VITALS: Ht 165.1 cm; Wt 71.6 kg
[~2017-05-18 10:52] MED LIST changes: +AMLO-110 PO; -AMLO5TAB3 PO; -NRN/100 PO
[2017-05-18 10:55] VITALS: TEMP 36.3; Ht 165.1 cm; Wt 71.6 kg
[2017-05-18] MEDS ORDERED: SODIUM CHLORIDE 0.9% 1000ML 1,000 ML IV STA (11:41)
--- NOTE | 2017-05-18 12:05 | EMERGENCY ROOM VISIT NOTE ---
History Report prepared by Yariel: Frida Arellano Under the Supervision of: Dr. Blade Branch M.D. First contact with patient: 11:26 Chief Complaint: LEG PAIN,LEG INJURY Stated Complaint: PAIN IN FOOT, WENT TO LEGS, FINGERS & FACE TINGLE History of Present Illness The patient is a 67 year old female who presents to the Emergency Room with complaints of worsening leg pain and numbness beginning a week ago. She reports her pain started in her feet before traveling up to her legs. She also notes numbness and tingling in her fingers and face. The patient denies any chest pain , difficulty breathing, or fever. The patient states she couldn't sleep last night because she was having anxiety. She denies any recent travel. Source of History: patient Onset: a week ago Position: leg (bilateral) Quality: numbness Timing: worsening Associated Symptoms: + urinary symptoms, + numbness, No fevers, No chest pain, No SOB Review of Systems See HPI for pertinent positives and negatives. A total of ten systems were reviewed and were otherwise negative. Past Medical & Surgical Medical Problems: (1) Asthma (2) Diverticulitis (3) High cholesterol (4) Hypertension Family History FHx: abdominal aortic aneurysm Social History Smoking Status: Never Smoker Alcohol Use: none Marital Status: Housing Status: lives with significant other Occupation Status: employed Current/Historical Medications Scheduled Amlodipine (Norvasc), 5 MG PO BID Gabapentin (Neurontin), 1 CAP PO TID Omeprazole (Prilosec), 20 MG PO QAM Rosuvastatin Calcium (Crestor), 5 MG PO HS Scheduled PRN Albuterol Sulfate (Proventil Hfa), 2 PUFF INH Q4H PRN for Shortness of Breath Diphenhydramine Hcl (Benadryl Allergy), 1 CAP PO HS PRN for ALLERGY RELIEF Allergies Coded Allergies: Hyoscyamine (Unverified Allergy, Intermediate, ANXIETY, 05/18/17) Doxycycline (Unverified Allergy, Mild, RASH, 05/18/17) Penicillins (Unverified Allergy, Mild, RASH, 05/18/17) Erythromycin (Unverified Allergy, Unknown, RASH, 05/18/17) Simvastatin (Unverified Allergy, Unknown, MUSCLE ACHES, 05/18/17) Tetracycline (Verified Allergy, Unknown, RASH, 05/18/17) Codeine (Unverified Adverse Reaction, Mild, GI UPSET AND NAUSEA, 05/18/17) Physical Exam Vital Signs Date Time Temp Pulse Resp B/P (MAP) Pulse Ox O2 Delivery O2 Flow Rate FiO2 05/18/17 14:22 76 18 135/72 97 Room Air 05/18/17 13:52 87 18 127/90 97 Room Air 05/18/17 10:55 36.3 97 20 152/86 98 Room Air Physical Exam Physical Exam GENERAL: She is oriented to person, place, and time. She appears well- developed and well-nourished. She does not appear distressed. ____ HENT: Exam performed. Head: Normocephalic and atraumatic. Right Ear: External ear normal. No mastoid tenderness. Left Ear: External ear normal. No mastoid tenderness. Mouth/Throat: The oropharynx is clear and moist. No trismus in the jaw. No dental abscesses or uvula swelling. No oropharyngeal exudate or tonsillar abscesses. ____ EYES: Conjunctivae and EOM are normal. Pupils are equal, round, and reactive to light. Right eye exhibits no discharge. Left eye exhibits no discharge. No scleral icterus. ____ NECK: Normal range of motion. Neck supple. No JVD present. No spinous process tenderness present. No carotid bruit present. No rigidity. No tracheal deviation and normal range of motion present. No Brudzinski's sign and no Kernig 's sign noted. ____ CV: Normal rate, regular rhythm, normal heart sounds and intact distal pulses. There is no peripheral edema. Palpable radial pulses bue. ____ PULM/CHEST: Effort normal and breath sounds normal. No respiratory distress. No stridor. She has no wheezes. She has no rales. Chest Wall: She exhibits no tenderness. ____ ABD: The abdomen is soft. Bowel sounds are normal. She has no distension. No mass is present. There is no tenderness. There is no rebound, no guarding, no Gary's sign and no tenderness at McBurney's point. Rovsig negative MUSC/SKEL: Normal range of motion. There is no peripheral edema, tenderness or deformity. LYMPH: No cervical adenopathy. ____ NEURO: She is alert and oriented to person, place, and time. SHe has normal strength. No cranial nerve deficit or sensory deficit. Coordination and gait normal. GCS eye subscore is 4. GCS verbal subscore is 5. GCS motor subscore is 6. Cerebellar tests wnl. ____ SKIN: Skin is warm and dry. She is not diaphoretic. ____ PSYCH: She has a normal mood and affect. Her behavior is normal. Judgment and thought content normal. ____ Medical Decision & Procedures ER Provider Diagnostic Interpretation: Radiology results as stated below per my review and radiologist interpretation: BILATERAL LOWER EXTREMITY VENOUS DOPPLER FINDINGS: There is normal compressibility, flow, and augmentation within the bilateral lower extremity deep venous systems. IMPRESSION: No DVT within the right or left lower extremity. Electronically signed by: Neville Butler M.D. Laboratory Results 05/18/17 11:55 Red Blood Count 4.53, Mean Corpuscular Volume 86.3, Mean Corpuscular Hemoglobin 31.3, Mean Corpuscular Hemoglobin Concent 36.3, Mean Platelet Volume 9.8, Neutrophils (%) (Auto) 68.1, Lymphocytes (%) (Auto) 23.5, Monocytes (%) (Auto) 7.4, Eosinophils (%) (Auto) 0.6, Basophils (%) (Auto) 0.3, Neutrophils # (Auto) 4.72, Lymphocytes # (Auto) 1.63, Monocytes # (Auto) 0.51, Eosinophils # (Auto) 0.04, Basophils # (Auto) 0.02 05/18/17 11:55 Test 05/18/17 11:55 White Blood Count 6.93 K/uL (4.8-10.8) Red Blood Count 4.53 M/uL (4.2-5.4) Hemoglobin 14.2 g/dL (12.0-16.0) Hematocrit 39.1 % (37-47) Mean Corpuscular Volume 86.3 fL (80-100) Mean Corpuscular Hemoglobin 31.3 pg (25-34) Mean Corpuscular Hemoglobin Concent 36.3 g/dl (32-36) Platelet Count 210 K/uL (130-400) Mean Platelet Volume 9.8 fL (7.4-10.4) Neutrophils (%) (Auto) 68.1 % Lymphocytes (%) (Auto) 23.5 % Monocytes (%) (Auto) 7.4 % Eosinophils (%) (Auto) 0.6 % Basophils (%) (Auto) 0.3 % Neutrophils # (Auto) 4.72 K/uL (1.4-6.5) Lymphocytes # (Auto) 1.63 K/uL (1.2-3.4) Monocytes # (Auto) 0.51 K/uL (0.11-0.59) Eosinophils # (Auto) 0.04 K/uL (0-0.5) Basophils # (Auto) 0.02 K/uL (0-0.2) RDW Standard Deviation 41.1 fL (36.4-46.3) RDW Coefficient of Variation 12.9 % (11.5-14.5) Immature Granulocyte % (Auto) 0.1 % Immature Granulocyte # (Auto) 0.01 K/uL (0.00-0.02) Anion Gap 7.0 mmol/L (3-11) Est Creatinine Clear Calc Drug Dose 83.5 ml/min Estimated GFR () 106.3 Estimated GFR (Non- 91.7 BUN/Creatinine Ratio 26.3 (10-20) Calcium Level 9.3 mg/dl (8.5-10.1) Total Creatine Kinase 128 U/L (26-192) Laboratory results reviewed by me Medications Administered Medications (Trade) Dose Ordered Sig/Amanda Route Start Time Stop Time Status Last Admin Dose Admin Sodium Chloride 1,000 ml @ 999 mls/hr Q1H1M STAT IV 05/18/17 11:41 05/18/17 12:41 DC 05/18/17 12:06 999 MLS/HR ED Course 1136: The patient was evaluated in room C6. A complete history and physical exam was performed. 1141: Ordered Sodium Chloride 1000 ml @ 999 mls/hr IV. 1428: Vitals stable, labs and imaging within normal limits. The patient was discharged with gabapentin. The patient states she has had gabapentin in the past and it has resolved her symptoms. DISCHARGE - Plan of care discussed with family and questions answered. The family was given both verbal and printed discharge instructions. The family verbalized understanding and ability to comply. The family is to seek outpatient follow up as noted in the discharge instructions. The family verbalized understanding and ability to comply. The family is discharged in stable condition. The family was instructed to return for worsening symptoms. Medical Decision Vitals stable, labs and imaging within normal limits. The patient was discharged with gabapentin. The patient states she has had gabapentin in the past and it has resolved her symptoms. DISCHARGE - Plan of care discussed with family and questions answered. The family was given both verbal and printed discharge instructions. The family verbalized understanding and ability to comply. The family is to seek outpatient follow up as noted in the discharge instructions. The family verbalized understanding and ability to comply. The family is discharged in stable condition. The family was instructed to return for worsening symptoms. Medication Reconcilliation Current Medication List: was personally reviewed by me Blood Pressure Screening Patient's blood pressure: Normal blood pressure Impression Primary Impression: Leg pain Scribe Attestation The scribe's documentation has been prepared under my direction and personally reviewed by me in its entirety. I confirm that the note above accurately reflects all work, treatment, procedures, and medical decision making performed by me. The chart was completed utilizing [employer] Speech voice recognition software. Grammatical errors, random word insertions, pronoun errors, and incomplete sentences are an occasional consequence of this system due to software limitations, ambient noise, and hardware issues. Any formal questions or concerns about the content, text, or information contained within the body of this dictation should be directly addressed to the physician for clarification. Departure Information Dispostion Home / Self-Care Prescriptions Gabapentin (Neurontin) 100 Mg Cap 1 CAP PO TID for 10 Days, #30 CAP 0 Refills Prov: Blade Branch M.D. 05/18/17 Referrals Victoria Ramirez PA-C (PCP) Forms HOME CARE DOCUMENTATION FORM, IMPORTANT VISIT INFORMATION Patient Instructions ED Paraesthesias, [facility] Problem Qualifiers Primary Impression: Leg pain Laterality: bilateral Qualified Codes: M79.604 - Pain in right leg; M79.605 - Pain in left leg
[2017-05-18 12:12] LABS: BASO % 0.3 %; BASO ABS # 0.02 K/uL (0-0.2); EOS % 0.6 %; EOS ABS # 0.04 K/uL (0-0.5); HEMATOCRIT 39.1 % (37-47); HEMOGLOBIN 14.2 g/dL (12.0-16.0); IG# 0.01 K/uL (0.00-0.02); LYMPH % 23.5 %; LYMPH ABS # 1.63 K/uL (1.2-3.4); MEAN CELL VOLUME 86.3 fL (80-100); MEAN CORPUSCULAR HEMOGLOBIN 31.3 pg (25-34); MEAN CORPUSCULAR HGB CONC 36.3 g/dl (32-36); MEAN PLATELET VOLUME 9.8 fL (7.4-10.4); MONO % 7.4 %; MONO ABS # 0.51 K/uL (0.11-0.59); NEUT % 68.1 %; NEUT ABS # 4.72 K/uL (1.4-6.5); PLATELET COUNT 210 K/uL (130-400); RED CELL DISTRIBUTION WIDTH CV 12.9 % (11.5-14.5); RED CELL DISTRIBUTION WIDTH SD 41.1 fL (36.4-46.3); WHITE BLOOD COUNT 6.93 K/uL (4.8-10.8)
[2017-05-18 12:31] LABS: CALCIUM 9.3 mg/dl (8.5-10.1); CREATININE 0.64 mg/dl (0.60-1.20); POTASSIUM 3.5 mmol/L (3.5-5.1)
--- NOTE | 2017-05-18 13:22 | DIAGNOSTIC IMAGING REPORT ---
BILATERAL LOWER EXTREMITY VENOUS DOPPLER HISTORY: Leg swelling. COMPARISON STUDY: None. FINDINGS: There is normal compressibility, flow, and augmentation within the bilateral lower extremity deep venous systems. IMPRESSION: No DVT within the right or left lower extremity. Electronically signed by: Neville Butler M.D. 05/18/2017 1:21 PM Dictated Date/Time: 05/18/2017 1:21 PM
[2017-05-18 14:22] VITALS: BP 135/72; PULSE 76; O2SAT 97
[2017-05-18] MEDS ORDERED: NRN/100 PO (14:25)
== END 2017-05-18 14:30 | disposition home or self-care (01) ==
LOC: C.EDB 10:53 → C.EDC 14:30
DX: M79.605 Pain in left leg (principal); J45.909 Unspecified asthma, uncomplicated; K57.92 Diverticulitis of intestine, part unspecified, without perforation or abscess without bleeding; E78.00 Pure hypercholesterolemia, unspecified; I10 Essential (primary) hypertension; Z79.899 Other long term (current) drug therapy; Z88.1 Allergy status to other antibiotic agents; Z88.0 Allergy status to penicillin; Z88.5 Allergy status to narcotic agent

== ENCOUNTER → 2017-11-01 | Outpatient (CLI) | payer OTHER, MEDICARE ==
[~2017-11-01] MED LIST changes: -AMLO-110 PO; +AMLO5TAB3 PO; +NRN/100 PO
== END | disposition home or self-care (01) ==
LOC: C.PATHSPEC 17:37
PROVIDERS: ATTEND Urology
DX: R31.9 Hematuria, unspecified (principal)